=== PATIENT | male | born 1945 | race Caucasian/White ===

== ENCOUNTER 2017-03-19 10:40 | Outpatient (CLI) | payer MEDICARE, OTHER | END 2017-03-19 10:41 | disposition home or self-care (01) | DX: M10.9 Gout, unspecified (principal) ==

== ENCOUNTER 2017-05-09 10:34 | Outpatient (CLI) | payer MEDICARE, OTHER ==
[2017-05-09 13:54] LABS: BASOPHILS % (AUTO) 0.8 %; EOSINOPHILS # (AUTO) 0.1 10^3/uL (0.0-0.7); EOSINOPHILS % (AUTO) 1.7 %; HGB - HEMOGLOBIN 13.4 g/dL (14.0-18.0); LYMPHOCYTES # (AUTO) 1.4 10^3/uL (1.5-3.5); LYMPHOCYTES % (AUTO) 20.7 %; MEAN CORPUSCULAR HEMOGLOBIN 28.5 pg (27.0-31.0); MEAN CORPUSCULAR HGB CONC 33.6 g/dL (32.0-36.0); MEAN CORPUSCULAR VOLUME 84.9 fL (80.0-94.0); MEAN PLATELET VOLUME 7.5 fL (7.4-11.4); MONOCYTES # (AUTO) 0.6 10^3/uL (0.0-1.0); MONOCYTES % (AUTO) 9.5 %; NEUTROPHILS # (AUTO) 4.4 10^3/uL (1.5-6.6); NEUTROPHILS % (AUTO) 67.3 %; RED BLOOD COUNT 4.71 10^6/uL (4.70-6.10); RED CELL DISTRIBUTION WIDTH 13.3 % (12.0-15.0); UNCORRECTED WHITE BLOOD COUNT 6.5 x10^3/uL; WHITE BLOOD COUNT 6.5 x10^3/uL (4.8-10.8)
[2017-05-09 14:13] LABS: ALBUMIN/GLOBULIN RATIO 1.2 (1.0-2.2); BILIRUBIN,TOTAL 0.7 mg/dL (0.2-1.0); BUN - BLOOD UREA NITROGEN 20 mg/dL (6-20); CALCIUM 8.9 mg/dL (8.5-10.3); CARBON DIOXIDE - CO2 31 mmol/L (21-32); CHLORIDE 103 mmol/L (101-111); CHOL/HDL RATIO 2.7 (<5.0); CHOLESTEROL 154 mg/dL; GFR - MDRD 74 (>89); GLUCOSE 96 mg/dL (70-100); HDL CHOLESTEROL 57 mg/dL; LDL/HDL RATIO 1.3 (<3.6); POTASSIUM 4.2 mmol/L (3.5-5.0); SODIUM 140 mmol/L (135-145); TOTAL PROTEIN 7.3 g/dL (6.7-8.2); TRIGLYCERIDES 107 mg/dL; VLDL CHOLESTEROL 21 mg/dL
== END 2017-05-09 23:59 ==
LOC: LAB.R 10:34
PROVIDERS: ATTEND Internal Medicine
DX: E78.2 Mixed hyperlipidemia (principal)
CPT/HCPCS: 80053; 80061; 85025

== ENCOUNTER 2017-08-27 08:00 | Outpatient (CLI) | payer MEDICARE, OTHER ==
[2017-08-27 19:12] LABS: BASOPHILS # (AUTO) 0.1 10^3/uL (0.0-0.1); BASOPHILS % (AUTO) 0.9 %; EOSINOPHILS # (AUTO) 0.1 10^3/uL (0.0-0.7); EOSINOPHILS % (AUTO) 1.2 %; HCT - HEMATOCRIT 40.3 % (42.0-52.0); HGB - HEMOGLOBIN 13.6 g/dL (14.0-18.0); IMMATURE RETIC FRACTION 0.39; LYMPHOCYTES # (AUTO) 1.2 10^3/uL (1.5-3.5); LYMPHOCYTES % (AUTO) 18.9 %; MEAN CORPUSCULAR HEMOGLOBIN 28.7 pg (27.0-31.0); MEAN CORPUSCULAR HGB CONC 33.7 g/dL (32.0-36.0); MEAN CORPUSCULAR VOLUME 85.1 fL (80.0-94.0); MEAN PLATELET VOLUME 7.3 fL (7.4-11.4); MONOCYTES # (AUTO) 0.6 10^3/uL (0.0-1.0); MONOCYTES % (AUTO) 9.2 %; NEUTROPHILS # (AUTO) 4.6 10^3/uL (1.5-6.6); NEUTROPHILS % (AUTO) 69.8 %; NUCLEATED RED BLOOD CELLS AUTO 0.1 /100WBC; RED BLOOD COUNT 4.73 10^6/uL (4.70-6.10); RED CELL DISTRIBUTION WIDTH 13.4 % (12.0-15.0); UNCORRECTED WHITE BLOOD COUNT 6.5 x10^3/uL; WHITE BLOOD COUNT 6.5 x10^3/uL (4.8-10.8)
[2017-08-27 19:53] LABS: FERRITIN 83.2 ng/mL (23.9-336.2)
== END 2017-08-27 08:01 | disposition home or self-care (01) ==
LOC: LAB.N 08:00
PROVIDERS: ATTEND Internal Medicine
DX: D64.9 Anemia, unspecified (principal)
CPT/HCPCS: 36415; 82607; 82728; 83010; 85025; 85044; 86880

== ENCOUNTER 2017-10-08 10:14 | Outpatient (CLI) | payer MEDICARE, OTHER ==
--- NOTE | 2017-10-08 12:34 | XRAY Report ---
TWO-VIEW CHEST: 10/08/2017 CLINICAL INDICATION: Chronic cough. FINDINGS: Frontal and lateral views of the chest demonstrate a normal cardiac silhouette. The lungs are clear. No effusion or pneumothorax is present. IMPRESSION: NORMAL CHEST. JOB #: [id number] EXT JOB #:[id number]
== END 2017-10-08 10:15 | disposition home or self-care (01) ==
LOC: DI 10:14
PROVIDERS: ATTEND Internal Medicine
DX: R05 Cough (principal)
CPT/HCPCS: 71020

== ENCOUNTER 2018-05-08 08:02 | Outpatient (CLI) | payer MEDICARE, OTHER ==
[2018-05-08 12:37] LABS: BASOPHILS # (AUTO) 0.1 10^3/uL (0.0-0.1); BASOPHILS % (AUTO) 2.2 %; EOSINOPHILS # (AUTO) 0.1 10^3/uL (0.0-0.7); EOSINOPHILS % (AUTO) 1.8 %; HGB - HEMOGLOBIN 13.2 g/dL (14.0-18.0); LYMPHOCYTES # (AUTO) 1.1 10^3/uL (1.5-3.5); LYMPHOCYTES % (AUTO) 21.3 %; MEAN CORPUSCULAR HEMOGLOBIN 28.3 pg (27.0-31.0); MEAN CORPUSCULAR HGB CONC 33.2 g/dL (32.0-36.0); MEAN CORPUSCULAR VOLUME 85.3 fL (80.0-94.0); MEAN PLATELET VOLUME 7.6 fL (7.4-11.4); MONOCYTES # (AUTO) 0.4 10^3/uL (0.0-1.0); MONOCYTES % (AUTO) 7.7 %; NEUTROPHILS # (AUTO) 3.6 10^3/uL (1.5-6.6); PLT - PLATELET COUNT 205 10^3/uL (130-450); RED BLOOD COUNT 4.66 10^6/uL (4.70-6.10); RED CELL DISTRIBUTION WIDTH 13.4 % (12.0-15.0); WHITE BLOOD COUNT 5.4 x10^3/uL (4.8-10.8)
[2018-05-08 13:01] LABS: ALBUMIN 3.9 g/dL (3.2-5.5); ALBUMIN/GLOBULIN RATIO 1.1 (1.0-2.2); ALKALINE PHOSPHATASE 56 IU/L (42-121); ALT ALANINE AMINOTRANSFERASE 13 IU/L (10-60); AST ASPARTATE AMINOTRANSFERASE 25 IU/L (10-42); BILIRUBIN,TOTAL 0.6 mg/dL (0.2-1.0); BUN - BLOOD UREA NITROGEN 17 mg/dL (6-20); CALCIUM 8.8 mg/dL (8.5-10.3); CARBON DIOXIDE - CO2 28 mmol/L (21-32); CHLORIDE 103 mmol/L (101-111); CHOL/HDL RATIO 2.7 (<5.0); CHOLESTEROL 125 mg/dL; CREATININE 0.8 mg/dL (0.6-1.2); GFR - MDRD 95 (>89); GLUCOSE 97 mg/dL (70-100); HDL CHOLESTEROL 46 mg/dL; LDL CHOLESTEROL,CALCULATED 61 mg/dL; LDL/HDL RATIO 1.3 (<3.6); SODIUM 138 mmol/L (135-145); TOTAL PROTEIN 7.4 g/dL (6.7-8.2); URIC ACID 3.7 mg/dL (2.6-7.2); VLDL CHOLESTEROL 18 mg/dL
== END 2018-05-08 08:03 | disposition home or self-care (01) ==
LOC: LAB.N 08:02
PROVIDERS: ATTEND Internal Medicine
DX: E55.9 Vitamin D deficiency, unspecified (principal); M1A.9XX0 Chronic gout, unspecified, without tophus (tophi); J45.909 Unspecified asthma, uncomplicated; E78.5 Hyperlipidemia, unspecified; I25.10 Atherosclerotic heart disease of native coronary artery without angina pectoris; Z79.899 Other long term (current) drug therapy
CPT/HCPCS: 36415; 80053; 80061; 82306; 83721; 84550; 85025

== ENCOUNTER 2018-05-22 08:00 | Outpatient (CLI) | payer MEDICARE, OTHER ==
[2018-05-22 18:29] LABS: MEAN RETIC VALUE 97.5; RED BLOOD COUNT 4.63 10^6/uL (4.70-6.10)
[2018-05-22 19:15] LABS: FERRITIN 104.2 ng/mL (23.9-336.2)
== END 2018-05-22 08:01 | disposition home or self-care (01) ==
LOC: LAB.N 08:00
PROVIDERS: ATTEND Internal Medicine
DX: D64.9 Anemia, unspecified (principal)
CPT/HCPCS: 36415; 82607; 82728; 83010; 85044; 86880

== ENCOUNTER 2018-06-29 10:06 | Outpatient (CLI) | payer MEDICARE, OTHER ==
--- NOTE | 2018-06-29 13:38 | XRAY Report ---
Procedure Date: 06/29/2018 Accession Number: [id number] / [id number] Procedure: XR - Wrist 2 View LT CPT Code: FULL RESULT: EXAM: Wrist 2 View LT DATE: 06/29/2018 10:38 AM CLINICAL HISTORY: PX IN L WRIST COMPARISON: None. TECHNIQUE: 2 views. FINDINGS: There is widening of the scapholunate interval with partial volar displacement of the lunate on the lateral radiograph. Sclerotic lucency through the scaphoid, not fully characterized on one view only. Possible nonhealing scaphoid fracture. Presumed postsurgical changes in the distal ulna, correlate to history of positive ulnar variance. 5 mm cystic lesion in the distal ulna, possibly posttraumatic. No acute fracture or dislocation. IMPRESSION: Widening of the scapholunate interval suggestive of ligamentous injury. Question nonhealing scaphoid fracture. Correlate distal ulna appearance to history of prior surgery, possibly for ulnar impingement syndrome. RADIA
== END 2018-06-29 10:07 | disposition home or self-care (01) ==
LOC: DI 10:06
PROVIDERS: ATTEND Internal Medicine
DX: M25.532 Pain in left wrist (principal)

== ENCOUNTER 2018-10-26 09:14 | Day surgery (SDC) | payer MEDICARE, OTHER ==
[2018-10-26] MEDS ORDERED: LACTATED RINGERS 1,000 ML IV ONE (09:53)
[2018-10-26] MEDS ORDERED: MIDAZOLAM 2 MG/2 ML VIAL IVP ONE (10:30)
[2018-10-26] MEDS ORDERED: fentaNYL 250 MCG/5 ML VIAL IVP ONE (10:30)
[2018-10-26 11:50] VITALS: BP 105/67
== END 2018-10-26 09:15 | disposition home or self-care (01) ==
LOC: SDS 09:14
PROVIDERS: ATTEND Surgery
PROC: 0DBL8ZZ Excision of Transverse Colon, Via Natural or Artificial Opening Endoscopic (ICD-10-PCS; principal; 2018-10-26 10:30)
DX: Z12.11 Encounter for screening for malignant neoplasm of colon (principal); D12.3 Benign neoplasm of transverse colon; K64.8 Other hemorrhoids; E78.00 Pure hypercholesterolemia, unspecified
CPT/HCPCS: 45380; J3010; J7120

== ENCOUNTER 2018-11-26 12:05 | Outpatient (CLI) | payer MEDICARE, OTHER ==
[2018-11-26 19:23] LABS: BASOPHILS % (AUTO) 0.5 %; EOSINOPHILS # (AUTO) 0.1 10^3/uL (0.0-0.7); EOSINOPHILS % (AUTO) 1.4 %; HGB - HEMOGLOBIN 12.8 g/dL (14.0-18.0); LYMPHOCYTES # (AUTO) 1.5 10^3/uL (1.5-3.5); LYMPHOCYTES % (AUTO) 24.7 %; MEAN CORPUSCULAR HEMOGLOBIN 28.2 pg (27.0-31.0); MEAN CORPUSCULAR HGB CONC 32.7 g/dL (32.0-36.0); MEAN CORPUSCULAR VOLUME 86.1 fL (80.0-94.0); MEAN PLATELET VOLUME 7.6 fL (7.4-11.4); MONOCYTES # (AUTO) 0.6 10^3/uL (0.0-1.0); NEUTROPHILS # (AUTO) 3.7 10^3/uL (1.5-6.6); NEUTROPHILS % (AUTO) 62.4 %; PLT - PLATELET COUNT 184 10^3/uL (130-450); RED BLOOD COUNT 4.53 10^6/uL (4.70-6.10); RED CELL DISTRIBUTION WIDTH 13.8 % (12.0-15.0); WHITE BLOOD COUNT 5.9 x10^3/uL (4.8-10.8)
== END 2018-11-26 23:59 | disposition home or self-care (01) ==
LOC: LAB.N 12:05
PROVIDERS: ATTEND Internal Medicine
DX: D64.9 Anemia, unspecified (principal)
CPT/HCPCS: 36415; 85025

== ENCOUNTER 2018-12-04 09:59 | Outpatient (CLI) | payer MEDICARE, OTHER ==
--- NOTE | 2018-12-04 11:57 | XRAY Report ---
Reason: L FOOT PAIN Procedure Date: 12/04/2018 Accession Number: [id number] / [id number] Procedure: XR - Foot 3 View LT CPT Code: FULL RESULT: EXAM: LEFT FOOT RADIOGRAPHY EXAM DATE: 12/04/2018 10:15 AM. CLINICAL HISTORY: L FOOT PAIN. COMPARISON: None. TECHNIQUE: 3 views. FINDINGS: Bones: No fractures or bone lesions. Joints: There are mild degenerative changes of the first metatarsophalangeal joint and first interphalangeal joint. There is fusion of the second middle and distal phalanges. Soft Tissues: There is mild dorsal soft tissue swelling of the midfoot. IMPRESSION: Mild osteoarthritis of the first ray. Mild dorsal soft tissue swelling of the midfoot. RADIA
== END 2018-12-04 10:00 | disposition home or self-care (01) ==
LOC: DI 09:59
PROVIDERS: ATTEND Podiatrist
DX: M19.072 Primary osteoarthritis, left ankle and foot (principal)

== ENCOUNTER 2019-09-17 14:13 | Outpatient (CLI) | payer MEDICARE, OTHER ==
[2019-09-17 18:52] LABS: CALCIUM 8.9 mg/dL (8.5-10.3); CREATININE 0.7 mg/dL (0.6-1.2)
== END 2019-09-17 14:14 | disposition home or self-care (01) ==
LOC: LAB.N 14:13
PROVIDERS: ATTEND Internal Medicine Cardiovascular Disease
DX: I10 Essential (primary) hypertension (principal)
CPT/HCPCS: 36415; 80048

== ENCOUNTER 2021-01-02 07:32 | Outpatient (CLI) | payer MEDICARE, OTHER ==
[2021-01-02 13:34] LABS: ALBUMIN 3.9 g/dL (3.2-5.5); ALBUMIN/GLOBULIN RATIO 1.3 (1.0-2.2); ALKALINE PHOSPHATASE 56 IU/L (42-121); ALT ALANINE AMINOTRANSFERASE 12 IU/L (10-60); AST ASPARTATE AMINOTRANSFERASE 22 IU/L (10-42); BILIRUBIN,TOTAL 0.5 mg/dL (0.2-1.0); BUN - BLOOD UREA NITROGEN 24 mg/dL (6-20); CALCIUM 8.9 mg/dL (8.5-10.3); CARBON DIOXIDE - CO2 29 mmol/L (21-32); CHLORIDE 105 mmol/L (101-111); CHOL/HDL RATIO 2.8 (<5.0); CHOLESTEROL 163 mg/dL; CREATININE 0.9 mg/dL (0.6-1.2); GLUCOSE 100 mg/dL (70-100); HDL CHOLESTEROL 59 mg/dL; LDL CHOLESTEROL,CALCULATED 85 mg/dL; LDL/HDL RATIO 1.4 (<3.6); TOTAL PROTEIN 6.8 g/dL (6.7-8.2); VLDL CHOLESTEROL 19 mg/dL
== END 2021-01-02 07:33 | disposition home or self-care (01) ==
LOC: LAB.N 07:32
PROVIDERS: ATTEND Internal Medicine Cardiovascular Disease
DX: E78.5 Hyperlipidemia, unspecified (principal)
CPT/HCPCS: 36415; 80053; 80061; 83721

== ENCOUNTER 2021-02-01 15:43 | Outpatient (CLI) | payer MEDICARE, OTHER | END 2021-02-01 15:44 | disposition critical access hospital (66) | LOC: EMS 15:43 | PROVIDERS: ATTEND Registered Nurse | DX: S09.90XA Unspecified injury of head, initial encounter (principal); R51.9 Headache, unspecified; W11.XXXA Fall on and from ladder, initial encounter | CPT/HCPCS: A0425; A0429 ==

== ENCOUNTER 2021-02-01 16:19 | Emergency (ER) | payer MEDICARE, OTHER ==
--- NOTE | 2021-02-01 16:36 | ED Physician Documentation ---
History of Present Illness - Stated complaint Stated Complaint: FALL - Chief complaint Chief Complaint: Trauma Hd/Nk - History obtained from History obtained from: Patient - Additonal information Additional information: 75-year-old male comes to the emergency department for evaluation of headache and low back pain after a fall from a 5 foot step ladder. He was near the top step when the ladder became unstable and he fell backwards striking his head on asphalt. He did not lose consciousness. He is not anticoagulated. He felt like the wind got knocked out of him. He was able to get up on his own and walk into the house. When he told his what happened she called 911. EMS placed the patient in a rigid cervical collar and backboard and transported him here. Patient reports a mild headache and states that his low back hurts but he does have a history of chronic low back pain. He denies chest pain or shortness of breath. Past medical history most significant for coronary artery disease status post stenting x2. Meds: Rosuvastatin, citalopram, metoprolol tartrate 12.5 mg twice daily, ramipril, ASA 81 Review of Systems Constitutional: reports: Reviewed and negative Eyes: reports: Reviewed and negative Ears: reports: Reviewed and negative Nose: reports: Reviewed and negative Throat: reports: Reviewed and negative Cardiac: denies: Chest pain / pressure Respiratory: denies: Dyspnea, Cough GI: denies: Abdominal Pain, Abdominal Swelling, Vomiting Skin: reports: Abrasion (s) (lower back) Musculoskeletal: reports: Neck pain, Back pain Neurologic: reports: Headache, Head injury. denies: Generalized weakness, Focal weakness, Numbness, Syncope, Confused, Altered mental status Psychiatric: reports: Reviewed and negative PD PAST MEDICAL HISTORY - Past Medical History Cardiovascular: High cholesterol, Coronary artery disease Endocrine/Autoimmune: None GI: GERD : None HEENT: None Psych: Depression, Anxiety Musculoskeletal: Osteoarthritis, Chronic back pain Derm: None - Past Surgical History General: Colonoscopy Cardiovascular: Coronary stent - Present Medications Home Medications: Ambulatory Orders Medication Instructions Recorded Confirmed Aspirin [Adult Aspirin] 81 mg PO DAILY 12/30/18 02/01/21 Citalopram [CeleXA] 20 mg PO DAILY 12/30/18 02/01/21 Metoprolol Tartrate 12.5 mg PO BID 12/30/18 02/01/21 Rosuvastatin Calcium 40 mg PO DAILY 12/30/18 02/01/21 ramipriL [Ramipril] 1 tab PO DAILY 02/01/21 02/01/21 - Allergies Allergies/Adverse Reactions: Allergies Allergy/AdvReac Type Severity Reaction Status Date / Time Sulfa (Sulfonamide Allergy Severe Itching Verified 02/01/21 16:31 Antibiotics) - Social History Smoking Status: Never smoker PD ED PE EXPANDED - General General: Alert, No acute distress - HEENT HEENT: PERRL, Ears normal, Other (Large approximately 3 cm hematoma left posterior occiput without open sores or lacerations.). No: Atraumatic - Neck Neck: Supple w/out meningeal sx, Soft tissue TTP. No: Adenopathy, No tenderness - Cardiac Cardiac: Regular Rate, Murmur Present, Radial strong equal, Pedal strong equal, Cap refill < 2 sec - Respiratory Respiratory: Clear to ausultation perla, Other (no tenderness elicited on rib wall). No: Distress - Abdomen Abdomen: Normal Bowel sounds - Back Back: Normal exam, Soft tissue tenderness, Other (large contusion/abrasion lower back) - Derm Derm: Abrasion (s) (lower back) - Extremities Extremities: Normal, Other (no tendernss of hip, femur, pelvis. Moves all extremeties with ease). No: Deformity, Tenderness - Neuro Neuro: Alert and Oriented X 3, CNII-XII intact, Normal speech - GCS Eye Opening: Spontaneous Motor: Obeys Commands Verbal: Oriented Total: 15 Results - Vitals Vitals: Vital Signs - 24 hr 02/01/21 16:28 Temperature 36.8 C Heart Rate 62 Respiratory 17 Rate Blood Pressure 169/93 H O2 Saturation 97 Oxygen O2 Source Room air - EKG (time done) 1730 Rate: Rate (enter#) (57) Rhythm: NSR [place]: Normal Intervals: Prolonged TN. No: Prolonged QT Ischemia: Normal ST segments Compare to prior EKG: Old EKG unavailable Computer interpretation: Agree with computer - Labs Labs: Laboratory Tests 02/01/21 02/01/21 02/01/21 17:31 17:31 17:40 WBC 6.2 RBC 4.74 Hgb 13.3 L Hct 41.4 L MCV 87.3 MCH 28.1 MCHC 32.1 RDW 12.4 Plt Count 178 MPV 9.1 Neut # (Auto) 4.2 Lymph # (Auto) 1.2 L Gregory # (Auto) 0.7 Eos # (Auto) 0.1 Baso # (Auto) 0.0 Absolute Nucleated RBC 0.00 Nucleated RBC % 0.0 Whole Blood INR 1.1 Sodium 138 Potassium 4.3 Chloride 103 Carbon Dioxide 28 Anion Gap 7.0 BUN 25 H Creatinine 0.9 Estimated GFR (MDRD) 82 L Glucose 102 H Calcium 8.8 Total Bilirubin 0.5 AST 29 ALT 16 Alkaline Phosphatase 58 Total Protein 7.2 Albumin 3.9 Globulin 3.3 Albumin/Globulin Ratio 1.2 Lipase 26 - Rads (name of study) CXR Radiology: Final report received (No acute cardiopulmonary process) CT head Radiology: Final report received (Subdural hematoma within the anterior and posterior falx) Cervical CT Radiology: Final report received (DDD no acute fx) lumbar CT Radiology: Final report received (Mild anterior height reduction at T12-L1 appears chronic consistent with normal variant anterior wedging. This was present on prior lumbar spine MRI in 2016. No acute trauma found.) PD MEDICAL DECISION MAKING - ED course Complexity details: reviewed results, re-evaluated patient, d/w patient ED course: 75-year-old male who has a past medical history most significant for coronary artery disease status post stenting presents the emergency department with headache and low back pain after a fall from a stepladder of about 5 feet onto hard asphalt. There was no loss of consciousness. Gentleman is not anticoagulated. He presents alert oriented and without any focal neuro deficits. Screening CT of the head does show a parafalcine subdural hematoma. This gentleman will need to be transferred to a hospital with higher level of care and neurosurgical services. CT of the cervical spine shows degenerative disc disease without acute fracture. Remove the cervical collar and patient had no midline spinous process tendern ess. He is able to range his neck fully without any pain elicited. Lumbar CT shows chronic anterior wedging at T12 and L1 but unchanged from an MRI in 2016. No acute trauma or fracture was seen. I have spoken with Dr. White neurosurgeon at [facility] as well as Dr. Palacio emergency department physician who has agreed to accept the patient in transfer to the emergency department. Patient will be transported via ALS. Patient's has been updated to status. Appropriate COBRA paperwork was completed. Departure - Departure Disposition: 02 Transfer Acute Care Hosp Clinical Impression: Subdural hematoma Fall Qualifiers: Encounter type: initial encounter Qualified Code(s): W19.XXXA - Unspecified fall, initial encounter Contusion, back Qualifiers: Encounter type: initial encounter Laterality: unspecified laterality Qualified Code(s): S20.229A - Contusion of unspecified back wall of thorax, initial encounter Hematoma of scalp Qualifiers: Encounter type: initial encounter Qualified Code(s): S00.03XA - Contusion of scalp, initial encounter
--- NOTE | 2021-02-01 17:08 | XRAY Report ---
PROCEDURE: Chest 1 View X-Ray INDICATIONS: chest pain TECHNIQUE: One view of the chest was acquired. COMPARISON: 2 view chest 10/08/2017. FINDINGS: Surgical changes and devices: None. Lungs and pleura: No pleural effusions or pneumothorax. Lungs are clear. Mediastinum: Mediastinal contours appear normal. Heart size is normal. Bones and chest wall: No suspicious bony lesions. Overlying soft tissues appear unremarkable. IMPRESSION: Normal for age, source of chest pain is not seen. Reviewed by: Gael Park MD on 02/01/2021 4:07 PM [facility] Approved by: Gael Park MD on 02/01/2021 4:07 PM [facility] Station ID: [id number]
--- NOTE | 2021-02-01 17:19 | CT Report ---
PROCEDURE: HEAD WO INDICATIONS: fall TECHNIQUE: Noncontrast 4.5 mm thick angled axial sections acquired from the foramen magnum to the vertex. For r adiation dose reduction, the following was used: automated exposure control, adjustment of mA and/or kV according to patient size. COMPARISON: None. FINDINGS: Image quality: Excellent. The ventricular system and cortical sulci demonstrate atrophy, consistent for patient's stated age. There are areas of hypodensity in the periventricular and subcortical white matter. There is hyperde nse widening of the anterior and posterior falx measuring 5 mm. No midline shift. Brainstem is unre markable. Globes are symmetrical. Sinuses are aerated. Osseous structures are intact. IMPRESSION: 1. Subdural hematoma within the anterior and posterior falx as above. The above findings were discussed with Dr. Demarco Sanderson on 02/01/2021 at 5:20 PM. Reviewed by: Paige Dallas MD on 02/01/2021 5:18 PM PST Approved by: Paige Dallas MD on 02/01/2021 5:18 PM PST Station ID: [id number]
[2021-02-01 17:40] LABS: BASOPHILS % (AUTO) 0.5 %; EOSINOPHILS # (AUTO) 0.1 10^3/uL (0.0-0.7); EOSINOPHILS % (AUTO) 1.3 %; HCT - HEMATOCRIT 41.4 % (42.0-52.0); HGB - HEMOGLOBIN 13.3 g/dL (14.0-18.0); LYMPHOCYTES # (AUTO) 1.2 10^3/uL (1.5-3.5); LYMPHOCYTES % (AUTO) 18.6 %; MEAN CORPUSCULAR HEMOGLOBIN 28.1 pg (27.0-31.0); MEAN CORPUSCULAR HGB CONC 32.1 g/dL (32.0-36.0); MEAN CORPUSCULAR VOLUME 87.3 fL (80.0-94.0); MEAN PLATELET VOLUME 9.1 fL (7.4-11.4); MONOCYTES # (AUTO) 0.7 10^3/uL (0.0-1.0); MONOCYTES % (AUTO) 10.8 %; NEUTROPHILS # (AUTO) 4.2 10^3/uL (1.5-6.6); PLT - PLATELET COUNT 178 10^3/uL (130-450); RED BLOOD COUNT 4.74 10^6/uL (4.70-6.10); RED CELL DISTRIBUTION WIDTH 12.4 % (12.0-15.0); WHITE BLOOD COUNT 6.2 x10^3/uL (4.8-10.8)
[2021-02-01 17:50] LABS: ALBUMIN 3.9 g/dL (3.2-5.5); ALBUMIN/GLOBULIN RATIO 1.2 (1.0-2.2); BILIRUBIN,TOTAL 0.5 mg/dL (0.2-1.0); CALCIUM 8.8 mg/dL (8.5-10.3); CREATININE 0.9 mg/dL (0.6-1.2); POTASSIUM 4.3 mmol/L (3.5-5.0); TOTAL PROTEIN 7.2 g/dL (6.7-8.2)
--- NOTE | 2021-02-01 17:52 | CT Report ---
PROCEDURE: CERVICAL SPINE WO INDICATIONS: fall TECHNIQUE: Noncontrast 3 mm thick sections acquired from the skull base to the T4 level. Sagittal and coronal r eformats were then constructed. For radiation dose reduction, the following was used: automated exp osure control, adjustment of mA and/or kV according to patient size. COMPARISON: None. FINDINGS: Image quality: Excellent. Bones: No fractures or dislocations. Degenerative disc disease is moderately severe from C4-5 throu gh C6-7. No traumatic subluxation is seen. Visualized superior ribs are intact. Soft tissues: Prevertebral soft tissues are normal in thickness. No paravertebral hematomas. No ap ical pneumothoraces. IMPRESSION: Mid cervical moderately severe degenerative disc disease with anterior and posterior projecting osteo phytes from C4-5 through C6-7 to the degree that spinal stenosis appears present. The soft tissue oswald luation shows no evidence of hematoma along the cervical spine. No fracture is found. Reviewed by: Gael Park MD on 02/01/2021 4:51 PM [facility] Approved by: Gael Park MD on 02/01/2021 4:51 PM [facility] Station ID: [id number]
--- NOTE | 2021-02-01 18:01 | CT Report ---
PROCEDURE: LUMBAR SPINE WO INDICATIONS: midline back pain s/p fall from ladder TECHNIQUE: Noncontrast 3 mm thick sections acquired from the T12 level to the sacrum. Sagittal and coronal refo rmats were constructed. For radiation dose reduction, the following was used: automated exposure co ntrol, adjustment of mA and/or kV according to patient size. COMPARISON: 12/21/2015 MR of the lumbosacral spine reviewed.. FINDINGS: Image quality: Excellent. Bones: There is normal bony alignment. No acute vertebral body compression fractures. No suspiciou s lytic or blastic bony lesions. Central spinal caliber is of mildly reduced overall caliber due to chronic degenerative disc disease is seen at L3-L4.. No pars defects. T12-L1: There is mild at the T12 vertebral body there is mild anterior height reduction. This is in the range of normal variation and there is no evidence of acute trauma. This is considered most likel y a manifestation of Scheuermann's kyphosis and was present on prior MR scanning from November 2015.. L1-L2: Mild degenerative disc disease, mild anterior height reduction of L1 as was seen at the lev el immediately above. This also was present on the prior MR scanning from November 2015 is is consider ed nontraumatic in origin. L2-L3: Mild degenerative disc disease, no subluxation. No evidence of fracture. L3-L4: Moderately severe degenerative disc disease with disc height reduction, and endplate osteoph yte formation. No trauma. Mild spinal and foraminal stenosis. L4-L5: The disc shows only a small degree of height reduction and desiccation. There is slight grad e 1 anterolisthesis of L4 on L5. This does not appear traumatic in origin, and is associated with fac et osteoarthritis. Ligamentous laxity is the presumed cause. No fracture. L5-S1: Mild degenerative disc disease, mild posterior midline disc bulge. No significant spinal or foraminal stenosis. Soft tissues: No retroperitoneal masses or hematomas. Visualized aorta is normal in caliber. IMPRESSION: The mild anterior height reduction at T12 and L1 appears chronic, consistent with normal variant ante rior wedging ("Scheuermann's kyphosis"), and was present on prior lumbosacral spine MR scanning from 2015. Note acute trauma found. Ligamentous laxity with mild grade 1 anterolisthesis of L3-4 on L5. Reviewed by: Gael Park MD on 02/01/2021 5:00 PM [facility] Approved by: Gael Park MD on 02/01/2021 5:00 PM [facility] Station ID: [id number]
[2021-02-01 18:38] VITALS: BP 165/91
== END 2021-02-01 18:46 | disposition short-term general hospital (02) ==
LOC: EDUNIT# → SUPCPDRO 16:19 → ED 16:19
DX: S06.5X0A Traumatic subdural hemorrhage without loss of consciousness, initial encounter (principal); S00.03XA Contusion of scalp, initial encounter; S30.0XXA Contusion of lower back and pelvis, initial encounter; S30.810A Abrasion of lower back and pelvis, initial encounter; W11.XXXA Fall on and from ladder, initial encounter; Y92.007 Garden or yard of unspecified non-institutional (private) residence as the place of occurrence of the external cause; M50.321 Other cervical disc degeneration at C4-C5 level; M48.02 Spinal stenosis, cervical region; M51.36 Other intervertebral disc degeneration, lumbar region; I44.0 Atrioventricular block, first degree; I25.10 Atherosclerotic heart disease of native coronary artery without angina pectoris; Z95.5 Presence of coronary angioplasty implant and graft; Z79.82 Long term (current) use of aspirin
CPT/HCPCS: 36415; 80053; 83690; 85025; 85610; 93005; 99284; 99285

== ENCOUNTER 2021-02-01 18:41 | Outpatient (CLI) | payer MEDICARE, OTHER | END 2021-02-01 18:42 | disposition short-term general hospital (02) | LOC: EMS 18:41 | PROVIDERS: ATTEND Registered Nurse | DX: S06.5X9A Traumatic subdural hemorrhage with loss of consciousness of unspecified duration, initial encounter (principal); I25.10 Atherosclerotic heart disease of native coronary artery without angina pectoris | CPT/HCPCS: A0425; A0428 ==

== ENCOUNTER 2021-04-02 09:58 | Outpatient (CLI) | payer MEDICARE, OTHER ==
[2021-04-02 12:48] LABS: CHOL/HDL RATIO 2.8 (<5.0); CHOLESTEROL 159 mg/dL; HDL CHOLESTEROL 57 mg/dL; LDL CHOLESTEROL,CALCULATED 82 mg/dL; LDL/HDL RATIO 1.4 (<3.6); TRIGLYCERIDES 102 mg/dL; VLDL CHOLESTEROL 20 mg/dL
== END 2021-04-02 09:59 | disposition home or self-care (01) ==
LOC: LAB.N 09:58
PROVIDERS: ATTEND Internal Medicine Cardiovascular Disease
DX: E78.5 Hyperlipidemia, unspecified (principal)
CPT/HCPCS: 36415; 80061; 83721

== ENCOUNTER 2022-02-11 09:56 | Outpatient (CLI) | payer MEDICARE, OTHER ==
[2022-02-11 12:03] LABS: BASOPHILS % (AUTO) 0.4 %; EOSINOPHILS # (AUTO) 0.1 10^3/uL (0.0-0.7); EOSINOPHILS % (AUTO) 1.3 %; HCT - HEMATOCRIT 41.5 % (42.0-52.0); HGB - HEMOGLOBIN 13.4 g/dL (14.0-18.0); LYMPHOCYTES # (AUTO) 1.3 10^3/uL (1.5-3.5); LYMPHOCYTES % (AUTO) 19.4 %; MEAN CORPUSCULAR HEMOGLOBIN 27.9 pg (27.0-31.0); MEAN CORPUSCULAR HGB CONC 32.3 g/dL (32.0-36.0); MEAN CORPUSCULAR VOLUME 86.3 fL (80.0-94.0); MEAN PLATELET VOLUME 9.5 fL (7.4-11.4); MONOCYTES # (AUTO) 0.6 10^3/uL (0.0-1.0); MONOCYTES % (AUTO) 8.9 %; NEUTROPHILS # (AUTO) 4.8 10^3/uL (1.5-6.6); NEUTROPHILS % (AUTO) 69.7 %; PLT - PLATELET COUNT 193 10^3/uL (130-450); RED BLOOD COUNT 4.81 10^6/uL (4.70-6.10); RED CELL DISTRIBUTION WIDTH 12.9 % (12.0-15.0); WHITE BLOOD COUNT 6.8 x10^3/uL (4.8-10.8)
[2022-02-11 13:04] LABS: ALBUMIN 4.1 g/dL (3.2-5.5); ALBUMIN/GLOBULIN RATIO 1.3 (1.0-2.2); ALKALINE PHOSPHATASE 59 IU/L (42-121); ALT ALANINE AMINOTRANSFERASE 12 IU/L (10-60); AST ASPARTATE AMINOTRANSFERASE 23 IU/L (10-42); BILIRUBIN,TOTAL 0.9 mg/dL (0.2-1.0); BUN - BLOOD UREA NITROGEN 20 mg/dL (6-20); CALCIUM 8.9 mg/dL (8.5-10.3); CARBON DIOXIDE - CO2 29 mmol/L (21-32); CHLORIDE 101 mmol/L (101-111); CHOL/HDL RATIO 2.7 (<5.0); CHOLESTEROL 148 mg/dL; GFR - MDRD 73 (>89); GLUCOSE 98 mg/dL (70-100); HDL CHOLESTEROL 55 mg/dL; LDL CHOLESTEROL,CALCULATED 72 mg/dL; LDL/HDL RATIO 1.3 (<3.6); POTASSIUM 4.8 mmol/L (3.5-5.0); SODIUM 140 mmol/L (135-145); TOTAL PROTEIN 7.3 g/dL (6.7-8.2); TRIGLYCERIDES 103 mg/dL; VLDL CHOLESTEROL 21 mg/dL
[2022-02-11 13:12] LABS: THYROID STIMULATING HORMONE 0.76 uIU/mL (0.34-5.60)
== END 2022-02-11 09:57 | disposition home or self-care (01) ==
LOC: LAB.N 09:56
PROVIDERS: ATTEND Family Medicine
DX: I62.00 Nontraumatic subdural hemorrhage, unspecified (principal); I10 Essential (primary) hypertension; J45.909 Unspecified asthma, uncomplicated; M19.90 Unspecified osteoarthritis, unspecified site; E78.5 Hyperlipidemia, unspecified; I25.10 Atherosclerotic heart disease of native coronary artery without angina pectoris
CPT/HCPCS: 36415; 80053; 80061; 83721; 84443; 85025

== ENCOUNTER 2022-07-24 11:40 | Outpatient (CLI) | payer MEDICARE, OTHER ==
--- NOTE | 2022-07-24 20:17 | CT Report ---
PROCEDURE: UPPER EXTREMITY WO - RT INDICATIONS: RIGHT SHOULDEER JOINT PAIN TECHNIQUE: Noncontrast 1 mm axial sections acquired of the right shoulder, with coronal and sagittal reformats. For radiation dose reduction, the following was used: automated exposure control, adjustment of mA and/or kV according to patient size. COMPARISON: Shoulder radiograph dated 07/16/2022. FINDINGS: Image quality: Excellent. Bones: Right shoulder alignment is anatomic. No acute fracture or dislocation. Moderate acromioclavi cular joint osteoarthritic changes are seen with joint space narrowing, subchondral sclerosis and mar ginal osteophyte formation depressing on musculotendinous junction of supraspinatus. Mild to moderate glenohumeral joint osteoarthritic changes also seen with joint space narrowing, subchondral sclerosi s and inferior osteophyte formation. No suspicious bony lesion. Visualized right upper ribs are intac t. Soft tissues: There is no significant joint effusion. No intra-articular loose bodies. No full-thick ness rotator cuff tendon rupture is seen. No significant muscle atrophy is seen on sagittal images. N o abnormal soft tissue calcifications. Visualized right upper lung field is clear. IMPRESSION: 1. No acute shoulder fracture or dislocation. Moderate acromioclavicular joint osteoarthritis and mil d to moderate glenohumeral joint osteoarthritis. No suspicious bony lesion. 2. No significant joint effusion or intra-articular loose bodies. No abnormal soft tissue calcificati ons. 3. No gross full-thickness rotator cuff tendon rupture. No significant muscle atrophy. Reviewed by: Zachariah Rey MD on 07/24/2022 8:15 PM PDT Approved by: Zachariah Rey MD on 07/24/2022 8:15 PM PDT Station ID: [id number]
== END 2022-07-24 11:41 | disposition home or self-care (01) ==
LOC: DI 11:40
PROVIDERS: ATTEND Nurse Practitioner
DX: M19.011 Primary osteoarthritis, right shoulder (principal)

== ENCOUNTER 2022-09-04 09:42 | Outpatient (CLI) | payer MEDICARE, OTHER | END 2022-09-04 09:43 | disposition home or self-care (01) | LOC: MAC.MOP 09:42 | PROVIDERS: ATTEND Nurse Practitioner | DX: I47.1 Supraventricular tachycardia (principal); I49.1 Atrial premature depolarization; I49.3 Ventricular premature depolarization | CPT/HCPCS: 93248 ==

== ENCOUNTER 2023-04-28 07:05 | Outpatient (CLI) | payer MEDICARE, OTHER ==
[2023-04-28 12:48] LABS: ALBUMIN 3.6 g/dL (3.2-5.5); ALKALINE PHOSPHATASE 53 IU/L (42-121); ALT ALANINE AMINOTRANSFERASE 10 IU/L (10-60); AST ASPARTATE AMINOTRANSFERASE 22 IU/L (10-42); BILIRUBIN,TOTAL 0.6 mg/dL (0.2-1.0); BUN - BLOOD UREA NITROGEN 24 mg/dL (6-20); CALCIUM 8.7 mg/dL (8.5-10.3); CARBON DIOXIDE - CO2 30 mmol/L (21-32); CHLORIDE 107 mmol/L (101-111); CHOL/HDL RATIO 2.5 (<5.0); CHOLESTEROL 133 mg/dL; GFR - MDRD 72 (>89); GLUCOSE 105 mg/dL (70-100); HDL CHOLESTEROL 53 mg/dL; LDL CHOLESTEROL,CALCULATED 63 mg/dL; LDL/HDL RATIO 1.2 (<3.6); POTASSIUM 4.7 mmol/L (3.5-5.0); SODIUM 141 mmol/L (135-145); TOTAL PROTEIN 7.1 g/dL (6.7-8.2); TRIGLYCERIDES 87 mg/dL; VLDL CHOLESTEROL 17 mg/dL
== END 2023-04-28 07:06 | disposition home or self-care (01) ==
LOC: LAB.N 07:05
PROVIDERS: ATTEND Nurse Practitioner
DX: I25.10 Atherosclerotic heart disease of native coronary artery without angina pectoris (principal); E78.5 Hyperlipidemia, unspecified
CPT/HCPCS: 36415; 80053; 80061; 83721

== ENCOUNTER 2023-05-02 13:16 | Outpatient (CLI) | payer MEDICARE, OTHER ==
--- NOTE | 2023-05-02 13:51 | SLEEP CARE CONSULTATION ---
Information from patient questionnaire entered by Helga Agrawal. I have reviewed and concur with the information entered by Helga Agrawal. This document represents the service I personally performed and the decisions made by me, Cookie Mckeon ARNP. History of Present Illness Service Date and Time: 05/02/2023 1316 Reason for Visit: New patient Chief Complaint: reports: Snoring, Observed pauses in breathing, Fatigue Date of Onset: 10 MONTHS Usual bedtime: 9-10PM Time it takes to fall asleep: QUICKLY Snores at night: Yes Observed to quit breathing while asleep: Yes Sleeps alone due to snoring: Yes Number of times waking at night: DONT KNOW Reasons for waking at night: reports: Bathroom. denies: Choking, Gasping for air Toss, Turn, or Twitch while sleeping: Yes Recalls having dreams: Yes Usually gets out of bed at: 6-630AM Feels refreshed in the morning: No Morning headache: No Sleepy or fatigued during the day: Yes Ever fallen asleep while driving: No Takes day naps: Yes (1-2 naps a day; sometimes 1-2 hours) Dreams during day naps: No Prior sleep studies: No Additional HPI information: I had the pleasure of seeing CUAUHTEMOC GALARZA today regarding the possibility of him having a sleep disorder. His current complaints are snoring, observed pauses in breathing and fatigue. He states his girlfriend has been telling him that he snores loudly. She will sleep in other room. She has also told him he stops breathing at night. He does not wake up feeling rested normally. He will take 1 nap after breakfast in the morning and may take another nap in afternoon if feeling tired. He states he is concerned about his sleep and would like to feel more rested. - Parasomnia Symptoms Ever been unable to move upon waking from sleep: No Walks in sleep: No Talks in sleep: No Ever acted out dreams in sleep: Yes (has in the past, ex told him he was hitting out while dreaming) Ever felt weak in the knees when startled or emotional: No Bothered by creepy, crawly, restless sensations in legs: No Problems with memory or concentration: Yes (memory) Subjective Initial [place] Sleepiness Scale score: 5 (05/01/23) Past Medical History Past Medical History: reports: Hypertension, Arthritis, Depression, Other (HYPERLIPIDEMIA; Brain injury with bleed, 2020) Social History The patient's occupation is a RE. Patient is and lives in [place]. Have you smoked in the past 12 months: No Alcohol use: Yes Alcohol amount and frequency: OCCASIONALLY Caffeine use: Yes Caffeine amount and frequency: 1 CUP IN AM Family History Family history of sleep disordered breathing: No Allergies and Home Medications Known drug allergies: Yes (SULFA) Drug allergies reviewed: Yes Home medication list reviewed: Yes (see updated list in EMR) Allergy and home medication list: Allergies Sulfa (Sulfonamide Antibiotics) Allergy (Severe, Verified 05/01/23 13:45) Itching Review of Systems Weight gain over past 5 years: 5 LBS Cardiovascular: reports: high blood pressure Respiratory: reports: chronic cough Gastrointestinal: denies: heartburn Urinary: reports: impotence Neurological: reports: head trauma. denies: headaches Psychiatric: reports: depression. denies: anxiety Ear/Nose/Throat: reports: nose bleeds, wisdom teeth removed. denies: tonsillectomy Endocrine: reports: sluggishness Physical Exam Vital signs obtained and entered by: Cookie Carcamo NP Blood Pressure: 129/71 Cuff size: wrist (left) Heart Rate: 54 O2 Saturation: 99 Height: 5 ft 9 in Weight: 188 lb Body Mass Index: 27.7 BMI Classification: Overweight Neck circumference: 16.5 (inches) Mouth and throat: narrow oropharynx Soft palate: long Hard palate: normal Uvula: normal Uvula visualization: 0% Mallampati Class IV Tongue: normal in size Tonsils: small Neck: normal w/o lymphadenopathy or thyromegaly Heart: regular rate and rhythm Impression and Plan 1. Suspected Obstructive Sleep Apnea-Hypopnea Syndrome, as suggested by a history of loud and irregular snoring, observed cessation of breath while asleep, unrefreshed sleep, cognitive impairment and excessive daytime sleepines s. Narrow oropharynx and obesity are common predisposing factors for obstructive sleep apnea-hypopnea syndrome. I recommend proceeding to polysomnography to confirm the diagnosis and to assess severity. If the patient has significant sleep disordered breathing, a manual CPAP titration study will also be performed to find the optimal treatment pressure. I informed the patient of what the sleep studies involve and after some discussion, obtained agreement to proceed. The pathophysiology of obstructive sleep apnea-hypopnea syndrome was discussed with the patient and health risks of cardiovascular and cerebrovascular disease if not treated. Risks of drowsy driving discussed in detail and patient advised to avoid long distance driving and to sinker puller at the first sign of drowsiness. Patient agreed to plan. * Schedule polysomnography +- manual CPAP titration study and return in 1-2 weeks after the study to discuss result and initiate therapy. * Avoid long distance driving or driving when feeling sleepy. * Avoid alcohol, sedative and muscle relaxant around bedtime. * Attempt to lose weight. * Review instructions provided by trained office staff on how to prepare for the sleep study. * Return for follow-up after sleep study completed. Counseling Topics: Weight loss health impact Visit Type: In Office Time Spent with Patient (minutes): 30 Provider Statement: I spent 100% of the Face to Face Visit with the patient with greater than 50% spent counseling the patient and coordination of care.
[2023-05-02 13:52] VITALS: BP 129/71
== END 2023-05-02 13:17 | disposition home or self-care (01) ==
LOC: SC 13:16
PROVIDERS: ATTEND Nurse Practitioner Family
DX: G47.10 Hypersomnia, unspecified (principal); R06.83 Snoring; R06.81 Apnea, not elsewhere classified; G47.8 Other sleep disorders; R41.89 Other symptoms and signs involving cognitive functions and awareness; E66.3 Overweight; Z68.27 Body mass index [BMI] 27.0-27.9, adult
CPT/HCPCS: 99213

== ENCOUNTER 2023-05-18 19:08 | Outpatient (CLI) | payer MEDICARE, OTHER | END 2023-05-18 19:09 | disposition home or self-care (01) | LOC: SC 19:08 | PROVIDERS: ATTEND Nurse Practitioner Family | DX: G47.33 Obstructive sleep apnea (adult) (pediatric) (principal); G47.61 Periodic limb movement disorder; E66.3 Overweight; Z68.27 Body mass index [BMI] 27.0-27.9, adult | CPT/HCPCS: 95810; 99203; G0463; 99212 ==

== ENCOUNTER 2023-05-21 14:09 | Outpatient (CLI) | payer MEDICARE, OTHER ==
--- NOTE | 2023-05-21 14:53 | Sleep Patient Instructions ---
Sleep Center Visit Summary - Patient Visit Information Reason for Visit: Sleep study followup - Patient Instructions Instructions Attached: CPAP, CPAP Dc Additional Instructions: You are being started on CPAP therapy with pressure setting at 4-15 cmH2O. You will need to call the sleep care office to set up your follow up once you have your APAP machine and we will schedule a visit to check compliance and response to therapy at that time. You may call the office with any concerns about pressure feeling too low or too much for adjustment, if needed. You should contact DME for any questions or concerns about mask or equipment. Please follow up in the sleep care office one month after obtaining new CPAP. - Clinic Information Contact: [facility] [address] [place] [address] [email or web address] T: [phone]
--- NOTE | 2023-05-21 14:56 | SLEEP CARE CONSULTATION ---
Information from patient questionnaire entered by Helga Agrawal. I have reviewed and concur with the information entered by Helga Agrawal. This document represents the service I personally performed and the decisions made by , Cookie Mckeon ARNP. History of Present Illness Service Date and Time: 05/21/2023 1409 Initial [place] Sleepiness Scale score: 5 (05/01/23) Current [place] Sleepiness Scale score: 6 (05/21/23) Additional HPI information: CUAUHTEMOC GALARZA returns for follow up and results of the recently performed polysomnography. Sleep study showed moderate obstructive sleep apnea with an average AHI of 21.7 and ron oxygen saturation of 88%. He had severe PLMs contributing to sleep fragmentation. I explained the pathophysiology behind obstructive sleep apnea. We then spent quite a bit of time discussing different treatment options. For mild obstructive sleep apnea, surgery and oral appliance are alternatives to nasal CPAP therapy but in moderate or severe cases, nasal CPAP is the most effective and reliable treatment. I reviewed the impact of weight changes on sleep apnea and strongly recommended losing weight. After some discussion, the patient opted to go with the nasal CPAP therapy. Nasal autoCPAP set at 4-15 cmH20 will be ordered with rationale explained. A manual titration study will be ordered if unable to find optimal pressure with office adjustments. I explained how CPAP machine works and what to expect when using the machine. Using CPAP every night in order to get used to it was emphasized. Patient advised to put CPAP mask on before getting into bed so as not to fall asleep without CPAP. To assist acclimation to CPAP use, it could also be used for a short time during day while reading or watching TV. The patient was instructed to call the CPAP supplier to discuss any mechanical problem that may occur. If the mask given is uncomfortable or is difficult to keep on through the night even with adjustment, contact the CPAP supplier as many will replace with another mask style if notified before 30 days. If snoring or perceives is not getting enough air or too much air from the machine, notify this office. Patient counseled not drink alcohol less than 4 hours before bedtime as it can increase snoring and apnea. Patient was cautioned about risks of drowsy driving until sleepiness symptoms resolve. Patient denies drowsy driving. Sleep Study - Results Type of Sleep Study: Polysomnography (COMPLETE 06/25/23) Prior sleep studies: No Polysomnography/Home Sleep Study results: IMPRESSION: The quality of the study is good. The patient had slightly reduced sleep efficiency due to a prolonged awakening in the middle of the night. The sleep architecture was abnormal for sleep fragmentation and reduced amount of time spent in slow wave sleep (N3). Respiratory monitoring showed moderate obstructive sleep apnea-hypopnea (AHI = 21.7) associated with frequent arousals, oxyhemoglobin desaturation and mild hypoxia (ron oxygen saturation of 88%). The respiratory events occurred independently of sleep stage and body position (supine AHI = 12.4; non-supine = 24.27). Snore was moderate in intensity. There was severe periodic leg movement of sleep contributing to the sleep fragmentation. Cardiac rhythm was normal sinus rhythm without significant arrhythmia. No abnormal behavior (parasomnia) observed during the night. Allergies and Home Medications Known drug allergies: Yes (sulfa) Drug allergies reviewed: Yes Home medication list reviewed: Yes (no changes) Allergy and home medication list: Allergies Sulfa (Sulfonamide Antibiotics) Allergy (Severe, Verified 05/21/23 12:58) Itching Review of Systems Review of systems same as previous: Yes (no changes) Physical Exam Vital signs obtained and entered by: HELGA Garduno MA Blood Pressure: 122/64 (LEFT ARM) Cuff size: regular Heart Rate: 72 O2 Saturation: 98 Height: 5 ft 9 in Weight: 188 lb 6.4 oz Body Mass Index: 27.8 BMI Classification: Overweight Impression and Plan 1. Obstructive Sleep Apnea-Hypopnea Syndrome, moderate, with lowest oxygen saturation of 88%. Obviously this is the cause of the patients symptoms of unrefreshed sleep, and excessive daytime sleepiness. Positive pressure therapy could benefit hypertension and depression. As mentioned above, the patient will be started on nasal autoCPAP therapy with pressure set at 4-15 cmH2O. A manual titration study will be completed if unable to find optimal treatment pressure with office adjustments. Compliance guidelines also reviewed. A copy of compliance guidelines will be given for reference at check out. 2. Periodic limb movement, severe, that did contribute to the fragmentation of the patients sleep. Periodic limb movement of sleep (PLMS) is characterized by episodes of repetitive limb movements that occur during sleep and usually involve the lower limbs. The etiology is unknown. Caffeine can aggravate PLMS and should be avoided. Sleep hygiene methods can also improve sleep as well as lifestyle changes such as regular exercise. Patient was advised that no treatment is needed at this time. If symptoms increase, then further evaluation is indicated. * Nasal auto CPAP therapy, pressure at 4-15 cm H2O. * Attempt to lose weight. * Avoid alcohol consumption near bedtime. * Avoid supine sleep until using CPAP. * The patient is again cautioned about driving until sleepiness completely resolves. * Return one month after CPAP obtained. I will assess response to therapy and compliance at that time. Counseling Topics: Weight loss health impact Prescriptions: Auto CPAP Visit Type: In Office Time Spent with Patient (minutes): 23 Provider Statement: I spent 100% of the Face to Face Visit with the patient with greater than 50% spent counseling the patient and coordination of care.
[2023-05-21 15:02] VITALS: BP 122/64
== END 2023-05-21 14:10 | disposition home or self-care (01) ==
LOC: SC 14:09
PROVIDERS: ATTEND Nurse Practitioner Family
DX: G47.33 Obstructive sleep apnea (adult) (pediatric) (principal); G47.61 Periodic limb movement disorder
CPT/HCPCS: 99213; G0463; 99212

== ENCOUNTER 2024-04-21 07:16 | Outpatient (CLI) | payer MEDICARE, OTHER ==
[2024-04-21 13:00] LABS: THYROID STIMULATING HORMONE 0.89 uIU/mL (0.34-5.60)
[2024-04-21 13:03] LABS: ALBUMIN 4.1 g/dL (3.2-5.5); ALBUMIN/GLOBULIN RATIO 1.3 (1.0-2.2); ALKALINE PHOSPHATASE 54 IU/L (42-121); ALT ALANINE AMINOTRANSFERASE 6 IU/L (10-60); AST ASPARTATE AMINOTRANSFERASE 17 IU/L (10-42); BILIRUBIN,TOTAL 0.5 mg/dL (0.2-1.0); BUN - BLOOD UREA NITROGEN 29 mg/dL (6-20); CALCIUM 9.2 mg/dL (8.5-10.3); CARBON DIOXIDE - CO2 28 mmol/L (21-32); CHLORIDE 106 mmol/L (101-111); CHOL/HDL RATIO 2.6 (<5.0); CHOLESTEROL 139 mg/dL; GFR - MDRD 72 (>89); GLUCOSE 100 mg/dL (74-104); HDL CHOLESTEROL 53 mg/dL; LDL CHOLESTEROL,CALCULATED 71 mg/dL; LDL/HDL RATIO 1.3 (<3.6); POTASSIUM 4.4 mmol/L (3.5-4.5); SODIUM 139 mmol/L (135-145); TOTAL PROTEIN 7.2 g/dL (6.4-8.9); TRIGLYCERIDES 74 mg/dL (48-352); URIC ACID 5.4 mg/dL (4.4-7.6); VLDL CHOLESTEROL 15 mg/dL
== END 2024-04-21 07:17 | disposition home or self-care (01) ==
LOC: LAB.N 07:16
PROVIDERS: ATTEND Family Medicine
DX: E78.5 Hyperlipidemia, unspecified (principal); R00.2 Palpitations; E55.9 Vitamin D deficiency, unspecified; I25.10 Atherosclerotic heart disease of native coronary artery without angina pectoris; Z12.5 Encounter for screening for malignant neoplasm of prostate; M10.9 Gout, unspecified; F41.9 Anxiety disorder, unspecified; F32.A Depression, unspecified
CPT/HCPCS: 36415; 80053; 80061; 82306; 83721; 84153; 84443; 84550; 85025

== ENCOUNTER 2024-04-22 11:07 | Outpatient (CLI) | payer MEDICARE, OTHER ==
[2024-04-22 11:25] LABS: BASOPHILS % (AUTO) 0.4 %; EOSINOPHILS # (AUTO) 0.1 10^3/uL (0.0-0.7); EOSINOPHILS % (AUTO) 1.5 %; HCT - HEMATOCRIT 42.5 % (42.0-52.0); HGB - HEMOGLOBIN 13.1 g/dL (14.0-18.0); LYMPHOCYTES # (AUTO) 1.4 10^3/uL (1.5-3.5); LYMPHOCYTES % (AUTO) 20.6 %; MEAN CORPUSCULAR HGB CONC 30.8 g/dL (32.0-36.0); MEAN CORPUSCULAR VOLUME 87.4 fL (80.0-94.0); MEAN PLATELET VOLUME 8.9 fL (7.4-11.4); MONOCYTES # (AUTO) 0.7 10^3/uL (0.0-1.0); MONOCYTES % (AUTO) 9.6 %; NEUTROPHILS # (AUTO) 4.6 10^3/uL (1.5-6.6); NEUTROPHILS % (AUTO) 67.6 %; PLT - PLATELET COUNT 187 10^3/uL (130-450); RED BLOOD COUNT 4.86 10^6/uL (4.70-6.10); RED CELL DISTRIBUTION WIDTH 12.6 % (12.0-15.0); WHITE BLOOD COUNT 6.8 x10^3/uL (4.8-10.8)
== END 2024-04-22 11:08 | disposition home or self-care (01) ==
LOC: LAB 11:07
PROVIDERS: ATTEND Family Medicine
DX: I25.10 Atherosclerotic heart disease of native coronary artery without angina pectoris (principal); Z12.5 Encounter for screening for malignant neoplasm of prostate; E78.5 Hyperlipidemia, unspecified; R00.2 Palpitations; M10.9 Gout, unspecified; F41.9 Anxiety disorder, unspecified; F32.A Depression, unspecified
CPT/HCPCS: 36415; 85025; G0103; 84153